=== PATIENT | female | born 1970 | race African-American/Black ===

== ENCOUNTER 2017-11-28 08:29 | Emergency (ER) | payer BC ==
--- NOTE | 2017-11-28 09:12 | EDM.PDOC ---
<Paul Palafox - Last Filed: 11/28/17 09:22> ED HPI GENERAL MEDICAL PROBLEM - General Chief Complaint: Back Pain or Injury Stated Complaint: BACK PAIN Time Seen by Provider: 11/28/17 08:52 - Related Data Allergies Allergy/AdvReac Type Severity Reaction Status Date / Time No Known Allergies Allergy Verified 11/28/17 08:48 Home Meds: Home Meds Hydrochlorothiazide 25 mg PO DAILY 11/28/17 [History] Multivitamins with Iron [Daily Dannie with Iron] 1 tab PO DAILY 11/28/17 [History] Naproxen [Naprosyn] 500 mg PO Q12HR #14 tab 11/28/17 [Rx] Course - Vital Signs Last Recorded V/S: Last Vital Signs Temp 96.5 F 11/28/17 08:41 Pulse 60 11/28/17 08:41 Resp 20 11/28/17 08:41 BP 146/85 H 11/28/17 08:41 Pulse Ox 100 11/28/17 08:41 - Orders/Labs/Meds Meds: Medications Discontinued Medications Generic Name Dose Route Start Last Admin Trade Name Freq PRN Reason Stop Dose Admin Naproxen 500 mg 11/28/17 09:23 Naprosyn PO 11/28/17 09:24 ONETIME ONE Departure - Departure Time of Disposition: 09:22 Disposition: Home, Self-Care 01 Condition: Fair Clinical Impression: Low back strain Qualifiers: Encounter type: initial encounter Qualified Code(s): S39.012A - Strain of muscle, fascia and tendon of lower back, initial encounter - Discharge Information Prescriptions: Naproxen [Naprosyn] 500 mg PO Q12HR #14 tab Referrals: PCP,Not In Area [Primary Care Provider] - Forms: ED Department Discharge Additional Instructions: rest back, no heavy lifting, alternate ice packs and heat to area of discomfort as needed. Naprosyn 500 mg twice daily with food, you may take tylenol in addition up to 3 times daily for extra pain relief. Follow up clinic if not much better as expected within 5 to 7 days. <Martha Jefferson - Last Filed: 11/28/17 09:29> ED HPI GENERAL MEDICAL PROBLEM - General Source of Information: Reports: Patient History Limitations: Reports: No Limitations - History of Present Illness INITIAL COMMENTS - FREE TEXT/NARRATIVE: 46 yo female presents for 4 days of low back pain. 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 She denies history of back pain, back problems or prior surgeries. She has never had pain like this before. She denies that the pain radiates down into her buttocks or leg or into her groin. Denies numbness or tingling, loss of bowel or bladder control or weakness in the extremities. She has been taking Tylenol for pain with no relief. She believes moving from lying to standing or sitting to standing makes the pain worse. 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 Denies: Fever, Chills, Malaise, Weakness HEENT: Reports: No Symptoms Respiratory: Reports: No Symptoms Cardiovascular: Reports: No Symptoms GI/Abdominal: Reports: No Symptoms. Denies: Constipation, Diarrhea : Reports: No Symptoms. Denies: Dysuria, Incontinence Musculoskeletal: Reports: Back Pain, Other (low back pain that radiates to the left side) Skin: Reports: No Symptoms Neurological: Reports: No Symptoms. Denies: Dizziness, Headache, Numbness, Tingling Psychiatric: Reports: No Symptoms Hematologic/Lymphatic: Reports: No Symptoms Immunologic: Reports: No Symptoms ED EXAM,LOWER BACK PAIN/INJURY - Physical Exam Exam: See Below Exam Limited By: No Limitations General Appearance: Alert, WD/WN, Mild Distress, Other (appears uncomfortable sitting on the edge of the bed) Ears: Hearing Grossly Normal Respiratory/Chest: No Respiratory Distress, Lungs Clear, Normal Breath Sounds, No Accessory Muscle Use Cardiovascular: Regular Rate, Rhythm, No Gallop, No Murmur, No Rub Back Exam: Decreased Range of Motion, Paraspinal Tenderness, Other (decreased ROM due to pain, muscle tenderness to palpation low left back and upper buttocks , minimal vertebral tenderness to palpation) Neurological: Alert, Normal Mood/Affect, No Motor/Sensory Deficits, Oriented x 3 Psychiatric: Normal Affect, Normal Mood Skin Exam: Warm, Dry, Normal Color Course - Orders/Labs/Meds Meds: Medications Discontinued Medications Generic Name Dose Route Start Last Admin Trade Name Freq PRN Reason Stop Dose Admin Naproxen 500 mg 11/28/17 09:23 Naprosyn PO 11/28/17 09:24 ONETIME ONE
[2017-11-28] MEDS ORDERED: Naproxen 500 MG Tab PO ONE (09:23)
== END 2017-11-28 09:45 | disposition home or self-care (01) ==
LOC: JD.ED 08:29
DX: S39.012A Strain of muscle, fascia and tendon of lower back, initial encounter (principal); I10 Essential (primary) hypertension; E11.9 Type 2 diabetes mellitus without complications; X50.9XXA Other and unspecified overexertion or strenuous movements or postures, initial encounter; Z79.899 Other long term (current) drug therapy
CPT/HCPCS: 99283; A9270